=== PATIENT | male | born 1970 | race Caucasian/White ===

== ENCOUNTER 2021-02-07 02:30 | Day surgery (SDC) | payer OTHER, SELFPAY ==
[2021-01-25 12:42] VITALS: BMI 29.6
[2021-02-07 11:08] VITALS: BP 120/90; PULSE 78; RESP 18; TEMP 36.1; O2SAT 98
[2021-02-07] MEDS: LACTATED RINGERS 1,000 ML 150 ML IV CONT (11:15)
--- NOTE | 2021-02-07 11:47 | WPDANESEPPF ---
Anes - Initial Pre Proc Eval Procedure: Operation Date: 02/07/21 11:30 Proposed Procedures p Screening Colonoscopy - Rowdy Alonzo MD Date/Time: 02/07/21 11:47 Surgeon: Rowdy Alonzo MD Pre Op Diagnosis: neoplasm screening Patient Data Age: 50 Gender: M Height: 1.75 m Weight: 91.9 kg Last Vital Signs Temp 96.9 F L 02/07/21 11:08 Pulse 78 02/07/21 11:08 Resp 18 02/07/21 11:08 BP 120/90 02/07/21 11:08 Pulse Ox 98 02/07/21 11:08 Allergies Allergy/AdvReac Type Severity Reaction Status Date / Time No Known Allergies Allergy Unknown Verified 02/07/21 11:07 Home Medications Medication Instructions Recorded Confirmed Type levothyroxine 150 mcg tablet 150 mcg PO DAILY #90 tablet 10/27/20 02/07/21 Rx omeprazole 20 mg capsule,delayed 20 mg PO DAILY #90 cap 10/27/20 02/02/21 Rx release finasteride 1 mg tablet 1 mg PO DAILY #90 tablet 02/02/21 02/07/21 Rx Patient hx anesthesia problems: none Family hx anesthesia problems: none PMFSH Past Medical History Medical History Gastro-esophageal reflux disease without esophagitis Herpesviral infection, unspecified Hypothyroidism (acquired) MDD (major depressive disorder), severe Family History Family History Grandparent Family history of lung cancer Family history of malignant neoplasm, Onset Age: 99 Father Family history of malignant neoplasm Multiple myeloma Mother Hypertension Social History Social History Alcohol intake: current Substance use: never Substance use type: does not use Living arrangements: with family Gender identity (if verbalized by the patient): Male Spiritual care concerns: No Anes - Eval Final PreProcedure Day of Procedure 02/07/21 11:47 Patient weight: overweight Heart: regular rate and rhythm Lungs: clear to auscultation Airway: Mallampati scale class II Neurological: alert and oriented Last oral intake: >/= 8 hours ASA classification: II Emergent: no Anesthetic plan: proceed Anesthesia type and monitoring: general GIVS and standard monitoring Informed Consent: The patient's anesthetic plan and its attendant risks and benefits were discussed with the patient/family/POA. Questions were solicited and answers provided to the satisfaction of the patient/family/POA.
--- NOTE | 2021-02-07 11:50 | PM.HPGS ---
History of Present Illness History of Present Illness Consent: Risks, benefits, and alternatives have been discussed and questions answered. Patient agrees to proceed with procedure. Chief complaint: neoplasm screening Narrative: Howie Faust is a 50 year old male referred for colon cancer screening Review of Systems Review of Systems: All systems reviewed & are unremarkable except as noted in HPI and below PMFSH Past Medical History Medical History Gastro-esophageal reflux disease without esophagitis Herpesviral infection, unspecified Hypothyroidism (acquired) MDD (major depressive disorder), severe Family History Family History Grandparent Family history of lung cancer Family history of malignant neoplasm, Onset Age: 99 Father Family history of malignant neoplasm Multiple myeloma Mother Hypertension Social History Social History Alcohol intake: current Substance use: never Substance use type: does not use Living arrangements: with family Gender identity (if verbalized by the patient): Male Spiritual care concerns: No Meds Home Medications and Allergies Home Medications Medication Instructions Recorded Confirmed Type levothyroxine 150 mcg tablet 150 mcg PO DAILY #90 tablet 10/27/20 02/07/21 Rx omeprazole 20 mg capsule,delayed 20 mg PO DAILY #90 cap 10/27/20 02/02/21 Rx release finasteride 1 mg tablet 1 mg PO DAILY #90 tablet 02/02/21 02/07/21 Rx Allergies Allergy/AdvReac Type Severity Reaction Status Date / Time No Known Allergies Allergy Unknown Verified 02/07/21 11:07 Vital Signs Vital Signs - 24 hr 02/07/21 11:08 Temperature 36.1 C L Pulse Rate 78 Respiratory Rate 18 Blood Pressure 120/90 Pulse Oximetry 98 Exam Const: General: alert Orientation/consciousness: patient oriented x3 Resp: Auscultation: clear to auscultation bilaterally Cardio: Rhythm: regular rhythm GI: GI Palp: Yes Soft to palpation and No Tenderness to palpation present (GI) Neuro: General: patient oriented x3 Assessment and Plan Assessment and plan (1) Colon cancer screening: Code(s): Z12.11 - Encounter for screening for malignant neoplasm of colon Status: Acute Assessment and Plan: Colonoscopy with possible biopsy or polypectomy or cautery or injection of substances.
[2021-02-07] MEDS: SIMETHICONE ORAL SUSPENSION 20 MG/0.3 ML 30 ML BOTTLE 0.6 ML IRRIGATION (12:03)
[2021-02-07 12:14] VITALS: BP 100/67; PULSE 68; RESP 19; O2SAT 95
[2021-02-07 12:24] VITALS: BP 100/66; PULSE 60; RESP 20; O2SAT 96
[2021-02-07 12:34] VITALS: BP 111/73; PULSE 61; RESP 20; O2SAT 97
== END 2021-02-07 12:50 | disposition home or self-care (01) ==
PROVIDERS: PCP Family Medicine; Visit Provider Internal Medicine Gastroenterology
PROC: 0DJD8ZZ Inspection of Lower Intestinal Tract, Via Natural or Artificial Opening Endoscopic (ICD-10-PCS; CPT 45378; principal; 2021-02-07 11:30)
DX: Z12.11 Encounter for screening for malignant neoplasm of colon (principal); K21.9 Gastro-esophageal reflux disease without esophagitis; E03.9 Hypothyroidism, unspecified; F32.9 Major depressive disorder, single episode, unspecified; K64.8 Other hemorrhoids
CPT/HCPCS: 45378; J2704; J7120

== ENCOUNTER 2022-03-03 13:01 | Outpatient (CLI) | payer OTHER, SELFPAY ==
--- NOTE | ~2022-03-03 | MM_ITS ---
EXAMINATION: MM diagnostic mammo BI HISTORY: Unspecified lump in the right breast TECHNIQUE: Full field digital craniocaudal and mediolateral oblique views of both breasts were obtain ed. CAD analysis was submitted and interpreted. COMPARISON: No prior mammogram is available for comparison at this institution. BREAST PARENCHYMAL COMPOSITION: The breasts are almost entirely fatty. FINDINGS: There is flame-shaped subareolar density of the breasts, right greater than left, consisten t with gynecomastia. An intramammary lymph node is noted in the upper outer quadrant of the left [address]. No suspicious mass, calcification, or architectural distortion are identified. IMPRESSION: 1. Findings consistent with bilateral gynecomastia, asymmetric on the right. Clinical follow-up is re commended. BI-RADS Category 2: Benign finding(s). Reviewed, dictated and finalized at location A. IMPRESSION: 1. Findings consistent with bilateral gynecomastia, asymmetric on the right. Cl inical follow-up is recommended. BI-RADS Category 2: Benign finding(s).
== END 2022-03-03 13:02 | disposition home or self-care (01) ==
PROVIDERS: PCP Family Medicine; Visit Provider Family Medicine
DX: N63.10 Unspecified lump in the right breast, unspecified quadrant (principal)
CPT/HCPCS: 77066

== ENCOUNTER → 2023-07-11 11:51 | Outpatient (CLI) | payer BC, SELFPAY ==
--- NOTE | ~2023-07-11 | XR_ITS ---
EXAMINATION: XR sacrum coccyx min 2V INDICATION: Sacral and sacrococcygeal radiculopathy TECHNIQUE: Three views of the sacrum and coccyx are obtained. COMPARISON: None available FINDINGS: Bone alignment is normal. There is mild to moderate lower lumbar spondylosis. There is a le aki arising from the lesser trochanter of the right femur which contains chondroid matrix and appear s to measure approximately 6.1 x 2.8 cm. Heterotopic ossification is also seen near the right pubic r ami, possibly arising from the superior pubic ramus, which could be related to prior injury. There is no fracture. Phleboliths are noted in the pelvis. IMPRESSION: 1. Ill-defined lesion arising from the lesser trochanter of the right femur which could account for t he patient's clinical symptoms. Further evaluation by MRI with contrast is recommended. Reviewed, dictated and finalized at location B. S POLISHER IMPRESSION: 1. Ill-defined lesion arising from the lesser trochanter of the right femur whi ch could account for the patient's clinical symptoms. Further evaluation by MRI with contrast is recommended.
--- NOTE | ~2023-07-11 | XR_ITS ---
EXAMINATION: XR lumbar spine min 4V DATE: 07/11/2023 12:31 INDICATION: Right leg dysesthesia TECHNIQUE: Anteroposterior, lateral, and bilateral oblique views of the lumbar spine, and cone-down l ateral view of the lumbosacral junction were obtained. COMPARISON: None. FINDINGS: There are 2 mm of retrolisthesis of L4 on L5. Bone alignment is otherwise normal. The verte bral body heights are maintained. There is moderate loss of intervertebral disc space height at L4-5 and L5-S1. Small degenerative osteophytes project from the anterior endplates of multiple vertebral b odies. There is mild facet joint osteoarthritis of the lower lumbar spine. IMPRESSION: 1. Mild to moderate lower lumbar spondylosis without acute findings. Reviewed, dictated and finalized at location B. [employer]
== END ==
PROVIDERS: PCP Family Medicine; Visit Provider Family Medicine
DX: M54.18 Radiculopathy, sacral and sacrococcygeal region (principal); M43.06 Spondylolysis, lumbar region; R20.8 Other disturbances of skin sensation; M89.8X5 Other specified disorders of bone, thigh
CPT/HCPCS: 72110; 72220